=== PATIENT | male | born 1945 | race Caucasian/White ===

== ENCOUNTER 2020-03-26 20:06 | Emergency (ER) | payer MEDICARE ==
--- NOTE | 2020-03-26 20:32 | ED Physician Documentation ---
PD HPI MALE - Stated complaint Stated Complaint: MALE - Chief complaint Chief Complaint: General - History obtained from History obtained from: Patient - History of Present Illness Timing - onset: How many hours ago (8) Timing - details: Gradual onset Pain level now: 8 Associated symptoms: Unable to urinate Recently seen: Clinic - Additional information Additional information: c/o unable to urinate since koch removed approximately 8 hours ago. patient was diagnosed with atrial fibrillation in November. He was started on metoprolol as well as Eliquis. Approximately three weeks ago, he went to urinary retention, requiring a Koch catheter. The catheter was removed approximately two weeks ago, but he filled a voiding test and does the catheter was replaced. He was also placed on Cipro for seven days and has completed his course of antibiotics. Earlier today, the catheter was removed by his urologist, Dr. Perera at the urology clinic at [facility]. he presents at this time due to inability to urinate since the catheter was removed eight hours ago, with suprapubic pain and urge to urinate he notes that the tiny amounts of urine he has been able to pass have been grossly bloody. Review of Systems Constitutional: reports: Reviewed and negative GI: denies: Abdominal Pain, Nausea, Vomiting : reports: Unable to Void, Hematuria Skin: denies: Rash PD PAST MEDICAL HISTORY - Past Medical History Past Medical History: Yes Cardiovascular: Atrial fibrillation : Retention - Past Surgical History Past Surgical History: Yes Cardiovascular: Cardiac catheterization - Allergies Allergies/Adverse Reactions: Allergies Allergy/AdvReac Type Severity Reaction Status Date / Time ibuprofen Allergy Hallucinati Verified 03/26/20 20:11 ons - Social History Does the pt smoke?: No Smoking Status: Never smoker Does the pt drink ETOH?: No Does the pt have substance abuse?: No - Immunizations Immunizations are current?: Yes - POLST Patient has POLST: No PD ED PE NORMAL - Vitals Vital signs reviewed: Yes - General General: Alert and oriented X 3, No acute distress, Well developed/nourished - Abdomen Abdomen: Soft, Non tender - Back Back: No CVA TTP - Derm Derm: Normal color, Warm and dry, No rash Results - Vitals Vitals: Oxygen O2 Source Room air - Labs Labs: Microbiology 03/26/20 20:40 Urine Culture - Preliminary Urine,Catheterized Laboratory Tests 07/03/26/20 03/26/20 20:40 21:28 21:28 WBC 11.0 H RBC 4.86 Hgb 15.9 Hct 45.7 MCV 94.0 MCH 32.7 H MCHC 34.8 RDW 12.1 Plt Count 228 MPV 9.6 Neut # (Auto) 9.9 H Lymph # (Auto) 0.4 L [place] # (Auto) 0.6 Eos # (Auto) 0.0 Baso # (Auto) 0.0 Absolute Nucleated RBC 0.00 Nucleated RBC % 0.0 PT 17.1 H INR 1.5 H APTT 32.6 Sodium Potassium Chloride Carbon Dioxide Anion Gap BUN Creatinine Estimated GFR (MDRD) Glucose Calcium Total Bilirubin AST ALT Alkaline Phosphatase Total Protein Albumin Globulin Albumin/Globulin Ratio Lipase Urine Color RED/BLOODY Urine Clarity CLEAR Urine pH 7.0 Ur Specific [place] 1.015 Urine Protein Urine Glucose (UA) NEGATIVE Urine Ketones TRACE Urine Occult Blood LARGE H Urine Nitrite Urine Bilirubin NEGATIVE Urine Urobilinogen Ur Leukocyte Esterase Urine RBC TNTC H Urine WBC 11-25 H Ur Squamous Epith Cells NONE SEEN Urine Bacteria Moderate H Ur Microscopic Review INDICATED Urine Culture Comments INDICATED 03/26/20 21:28 WBC RBC Hgb Hct MCV MCH MCHC RDW Plt Count MPV Neut # (Auto) Lymph # (Auto) [place] # (Auto) Eos # (Auto) Baso # (Auto) Absolute Nucleated RBC Nucleated RBC % PT INR APTT Sodium 136 Potassium 4.0 Chloride 97 L Carbon Dioxide 28 Anion Gap 11.0 BUN 17 Creatinine 1.4 H Estimated GFR (MDRD) 50 L Glucose 127 H Calcium 9.1 Total Bilirubin 2.0 H AST 17 ALT 33 Alkaline Phosphatase 57 Total Protein 7.2 Albumin 4.0 Globulin 3.2 Albumin/Globulin Ratio 1.3 Lipase 39 Urine Color Urine Clarity Urine pH Ur Specific [place] Urine Protein Urine Glucose (UA) Urine Ketones Urine Occult Blood Urine Nitrite Urine Bilirubin Urine Urobilinogen Ur Leukocyte Esterase Urine RBC Urine WBC Ur Squamous Epith Cells Urine Bacteria Ur Microscopic Review Urine Culture Comments PD MEDICAL DECISION MAKING - ED course Complexity details: re-evaluated patient, considered differential, d/w patient, d/w family ED course: ED RN placed koch catheter without difficulty, return of several hundred ccs of grossly bloody urine without clots. given 1 liter NS and urine output transitioned from opaque red to translucent pink. he is asymptomatic at time of discharge with reassuring labs. 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 plan is d/c home, f/u with urology, return if worse. Departure - Departure Disposition: Home, Self Care Clinical Impression: Hematuria, Urinary retention Condition: Good Instructions: ED Catheter Care Koch, ED Hematuria, ED Retention Urinary Male Follow-Up: DEVIN GAN ARNP [Primary Care Provider] - Discharge Date/Time: 03/26/20 23:10
[2020-03-26] MEDS ORDERED: SODIUM CHLORIDE 0.9% 1,000 ML IV STA (21:19)
[2020-03-26 21:30] LABS: BILIRUBIN,URINE NEGATIVE (NEGATIVE); GLUCOSE, URINE (UA) NEGATIVE (NEGATIVE); OCCULT BLOOD,URINE LARGE (NEGATIVE)
[2020-03-26 21:31] LABS: CLARITY,URINE CLEAR (CLEAR)
[2020-03-26 21:32] LABS: KETONES,URINE (UA) TRACE mg/dL (NEGATIVE)
[2020-03-26 21:35] LABS: BASOPHILS % (AUTO) 0.4 %; EOSINOPHILS % (AUTO) 0.3 %; HGB - HEMOGLOBIN 15.9 g/dL (14.0-18.0); LYMPHOCYTES # (AUTO) 0.4 10^3/uL (1.5-3.5); LYMPHOCYTES % (AUTO) 3.7 %; MEAN CORPUSCULAR HEMOGLOBIN 32.7 pg (27.0-31.0); MEAN CORPUSCULAR HGB CONC 34.8 g/dL (32.0-36.0); MEAN PLATELET VOLUME 9.6 fL (7.4-11.4); MONOCYTES # (AUTO) 0.6 10^3/uL (0.0-1.0); MONOCYTES % (AUTO) 5.1 %; NEUTROPHILS # (AUTO) 9.9 10^3/uL (1.5-6.6); PLT - PLATELET COUNT 228 10^3/uL (130-450); RED BLOOD COUNT 4.86 10^6/uL (4.70-6.10); RED CELL DISTRIBUTION WIDTH 12.1 % (12.0-15.0)
[2020-03-26 21:38] LABS: BACTERIA,URINE Moderate /HPF (None Seen); RBC,URINE TNTC /HPF (0-5); SQUAMOUS EPITHELIAL CELL,UR NONE SEEN (<= Few)
[2020-03-26 21:41] LABS: INR 1.5 (0.8-1.2); PT - PROTHROMBIN TIME 17.1 secs (9.9-12.6)
[2020-03-26 21:48] LABS: PARTIAL THROMBOPLASTIN TIME 32.6 secs (24.9-33.3)
[2020-03-26 21:53] LABS: ALBUMIN/GLOBULIN RATIO 1.3 (1.0-2.2); CALCIUM 9.1 mg/dL (8.5-10.3); CREATININE 1.4 mg/dL (0.6-1.2); TOTAL PROTEIN 7.2 g/dL (6.7-8.2)
[2020-03-26 22:50] VITALS: BP 138/86
== END 2020-03-26 23:10 | disposition home or self-care (01) ==
LOC: ED 20:06
DX: R33.9 Retention of urine, unspecified (principal); R31.9 Hematuria, unspecified; I48.91 Unspecified atrial fibrillation; Z79.01 Long term (current) use of anticoagulants
CPT/HCPCS: 36415; 51702; 51798; 80053; 81001; 81003; 83690; 85025; 85610; 85730; 87077; 87086; 87181; 99283

== ENCOUNTER 2020-12-17 08:00 | Outpatient (CLI) | payer MEDICARE ==
--- NOTE | 2020-12-17 16:51 | XRAY Report ---
PROCEDURE: Ankle 3 View LT INDICATIONS: LEFT ANKLE PAIN TECHNIQUE: 3 views of the ankle were acquired. COMPARISON: None. FINDINGS: Bones: No acute fractures or dislocations. There is a corticated ossification over the distal tip of the medial malleolus compatible with sequela of remote injury. No evidence for osseous erosions. Ank le mortise is normally aligned. No suspicious bony lesions. Tiny plantar calcaneal and retrocalcane al enthesophytes. Soft tissues: Very small anterior tibiotalar joint effusion. Achilles tendon appears normal. There is soft tissue swelling overlying the lateral malleolus. IMPRESSION: 1. Lateral malleolus soft tissue swelling without underlying fracture or dislocation. No suspicious o sseous erosions. 2. Chronic appearing ossification distal to the medial malleolus likely representing sequela of remot e injury. 3. Small anterior tibiotalar joint effusion. 4. Minimal plantar calcaneal and retrocalcaneal enthesopathy. If there is continued clinical concern for pathology or occult fracture, consider follow-up imaging w ith repeat radiographs in 10-14 days and possible advanced imaging (CT, MRI, bone scan) if symptoms p ersist. Reviewed by: Robb Wilkins MD on 12/17/2020 4:50 PM PDT Approved by: Robb Wilkins MD on 12/17/2020 4:50 PM PDT Station ID: [id number]
== END 2020-12-17 23:59 | disposition home or self-care (01) ==
LOC: DI.S 08:00
PROVIDERS: ATTEND Physician Assistant Medical
DX: M25.472 Effusion, left ankle (principal); M76.892 Other specified enthesopathies of left lower limb, excluding foot; M79.89 Other specified soft tissue disorders; R93.6 Abnormal findings on diagnostic imaging of limbs

== ENCOUNTER 2023-02-01 13:04 | Emergency (ER) | payer MEDICARE ==
--- NOTE | 2023-02-01 13:15 | ED Physician Documentation ---
PD HPI HEAD INJURY - Stated complaint Stated Complaint: HEAD INJ - History obtained from History obtained from: Patient - History of Present Illness Mechanism of head injury: Fell Where head injury occurred: [place] Location of injury: Back Quality of pain: Throbbing, Aching Associated symptoms: No: LOC, AMS, Amnesia, Nausea / vomiting, Neck pain, Paresthesias, Seizures, Ear drainage, Nasal drainage Symptoms improve with: Rest, Ice Contributing factors: Anticoagulated - Additional information Additional information: This is a 77-year-old male who has a history of atrial fibrillation and is on Eliquis who presents from the clinic after being seen there for a fall. The patient slipped on a boat ramp in fell onto his right side and hit his head on the ground. He did not lose consciousness. He sustained a head laceration and hematoma which was cleaned and stapled at the clinic but given his risk factors And anticoagulation use, the patient was sent here for CT scan. Injury occurred several hours ago and the patient has not had any change in mentation, no confusion or repetitive questioning, no ataxia, no vomiting. He notes some soreness to the right knee as well but states he twisted between 2 logs on the boat ramp and has some right lower back pain and soreness from fall. He denies any hip or pelvis pain, no neck or upper back pain. He is ambulatory without difficulty. Review of Systems Constitutional: reports: Reviewed and negative Eyes: reports: Reviewed and negative Ears: reports: Reviewed and negative Nose: reports: Reviewed and negative Throat: reports: Reviewed and negative Cardiac: reports: Reviewed and negative Respiratory: reports: Reviewed and negative GI: reports: Reviewed and negative : reports: Reviewed and negative Skin: reports: Laceration (s) Musculoskeletal: reports: Extremity pain (Right knee pain) Neurologic: reports: Headache, Head injury. denies: Generalized weakness, Focal weakness, Numbness, Difficulty speaking, Near syncope, Syncope, Seizure, Confused, Altered mental status, Unresponsive, LOC, Other PD PAST MEDICAL HISTORY - Past Medical History Cardiovascular: Atrial fibrillation : Retention - Past Surgical History Past Surgical History: Yes Cardiovascular: Cardiac catheterization - Present Medications Home Medications: Ambulatory Orders Medication Instructions Recorded Confirmed Apixaban [Eliquis] 5 mg ORAL BID 02/01/23 02/01/23 Levothyroxine Sodium [Synthroid] 150 mcg PO DAILY 02/01/23 02/01/23 - Allergies Allergies/Adverse Reactions: Allergies Allergy/AdvReac Type Severity Reaction Status Date / Time ibuprofen Allergy Hallucinati Verified 02/01/23 13:20 ons - Social History Does the pt smoke?: No Smoking Status: Never smoker Does the pt drink ETOH?: No Does the pt have substance abuse?: No - Immunizations Immunizations are current?: Yes - POLST Patient has POLST: No Results - Vitals Vitals: Vital Signs - 24 hr 02/01/23 02/01/23 13:11 13:42 Temperature 36.1 C L Heart Rate 54 L 69 Respiratory 17 16 Rate Blood Pressure 159/95 H 179/116 H O2 Saturation 98 99 Oxygen O2 Source Room air - Rads (name of study) No standard instances Relevant Findings:: Final report received PD Medical Decision Making - ED course Complexity details: reviewed results, re-evaluated patient, considered differential, d/w patient ED course: 77-year-old male presented after a fall with head injury as described in HPI. He had already been seen in clinic and had the scalp laceration cleaned and repaired with cristopher but was sent here for head CT. He had some other areas of soreness but no other acute injuries during the fall. We obtained a head CT which is negative. The patient continues to have normal mentation, no change in mental status and safe for dismissal home. I did advise supportive measures including Tylenol, ice pack and keeping the wound clean but otherwise dry. Return precautions reviewed if new or worsening symptoms. Departure - Departure Disposition: 01 Home, Self Care Clinical Impression: Scalp laceration Qualifiers: Encounter type: initial encounter Qualified Code(s): S01.01XA - Laceration without foreign body of scalp, initial encounter Condition: Good Instructions: ED Laceration Scalp Stitch Or Stap Comments: Your head CT is negative for any bleeding within the brain. You do have a hematoma on the scalp and a laceration. The cristopher should be in place for 10 to 14 days and can be removed in the clinic or by your primary doctor. I imagine your right knee and lower back oriented be more sore over the next few days, you can take Tylenol for these, continue ice pack or moist heat if more comfortable, and do light range of motion activities. If you have ongoing knee pain after the next 1 to 2 weeks, see your primary doctor at which time they may consider an MRI.
[2023-02-01 13:43] VITALS: BP 179/116
--- NOTE | 2023-02-01 13:50 | CT Report ---
PROCEDURE: HEAD WO INDICATIONS: fall, trauma TECHNIQUE: Noncontrast 4.5 mm thick angled axial sections acquired from the foramen magnum to the vertex. For r adiation dose reduction, the following was used: automated exposure control, adjustment of mA and/or kV according to patient size. COMPARISON: None. FINDINGS: Image quality: Excellent. CSF spaces: Basal cisterns are patent. No extra-axial fluid collections. Ventricles are normal in size and shape. Brain: No midline shift. No intracranial masses or hemorrhage. Tucker-white matter interface is norm al. Skull and face: Calvarium and visualized facial bones are intact, without suspicious lesions. Scalp hematoma overlying the right posterior calvarium. Sinuses: Visualized sinuses and mastoids are clear. IMPRESSION: No acute intracranial pathology Reviewed by: Dean Mak on 02/01/2023 12:49 PM AKBEATRICE Approved by: Dean Mak on 02/01/2023 12:49 PM AKBEATRICE Station ID: [id number]
== END 2023-02-01 14:13 | disposition home or self-care (01) ==
LOC: ED 13:04
DX: S01.01XA Laceration without foreign body of scalp, initial encounter (principal); W01.198A Fall on same level from slipping, tripping and stumbling with subsequent striking against other object, initial encounter; I48.91 Unspecified atrial fibrillation; Z79.01 Long term (current) use of anticoagulants
CPT/HCPCS: 99283; 99284